=== PATIENT | female | born 1950 ===

== ENCOUNTER 2019-08-23 00:04 | Emergency (ER) | payer BC, MEDICARE ==
[~2019-08-23] VITALS: Ht 167.6 cm; Wt 88.0 kg
[2019-08-23] MEDS ORDERED: HYDROmorphone 1 MG/ML, 1ML INJ IM ONE (02:00)
[2019-08-23] MEDS ORDERED: HYDROmorphone 1 MG/ML, 1ML INJ ONE (02:17)
[2019-08-23 02:40] VITALS: BP 117/61
--- NOTE | 2019-08-23 03:06 | NUR ---
PT RESTING COMFORTABLY. SO AT BEDSIDE. WARM BLANKET PROVIDED.
== END 2019-08-23 04:55 | disposition home or self-care (01) ==
LOC: ED 04:53
DX: S92.125A Nondisplaced fracture of body of left talus, initial encounter for closed fracture (principal); X50.1XXA Overexertion from prolonged static or awkward postures, initial encounter; Y93.89 Activity, other specified; Y92.89 Other specified places as the place of occurrence of the external cause; Y99.8 Other external cause status
CPT/HCPCS: 29515; 73564; 73610; 73700; 96372; 99284; J1170